=== PATIENT | male | born 1945 | race Caucasian/White ===

== ENCOUNTER 2020-04-21 07:25 | Outpatient (REF) | payer MEDICARE, SELFPAY ==
[2020-04-21 09:34] LABS: Anion Gap 14 (12-20); Blood Urea Nitrogen 32 mg/dL (9-16); Calcium 9.1 mg/dL (8.4-10.2); Carbon Dioxide 33 mmol/L (22-29); Chloride 98 mmol/L (96-108); Estimated Glomerular Filt Rate 40; Glucose Random 260 mg/dL (60-115); Potassium 4.8 mmol/l (3.3-5.1); Sodium 140 mmol/L (135-145)
== END 2020-04-21 07:26 | disposition home or self-care (01) ==
LOC: HO.LAB 07:25
PROVIDERS: PCP Internal Medicine; Visit Provider Nurse Practitioner Family
DX: I48.19 Other persistent atrial fibrillation (principal); I50.9 Heart failure, unspecified
CPT/HCPCS: 36415; 80048

== ENCOUNTER 2020-04-24 06:27 | Day surgery (SDC) | payer MEDICARE, SELFPAY ==
[2020-04-18 17:57] VITALS: BMI 33.7
--- NOTE | 2020-04-23 12:29 | P.CONAN_ITS ---
Documented by User: Xiomy Valerio 04/23/20 12:42 HPI - Anesthesia Eval Consult details Narrative: 75yo M for Cardioversion s/p cardioversion 01/2020 [facility] Past Medical History Medical History Arthritis Atrial fibrillation Back pain Cardiomyopathy CHB (complete heart block) CHF (congestive heart failure) COPD (chronic obstructive pulmonary disease) CVA (cerebral vascular accident) History of cardioversion (02/06/20) Hyperlipidemia Hypertension IDDM (insulin dependent diabetes mellitus) Pacemaker (~03/2019) Sleep apnea with use of continuous positive airway pressure (CPAP) Surgical History Surgical History H/O hernia repair History of lumbar surgery (~1989) Social History Social History Smoking Status: Former smoker Smoked in Last 30 Days: No Smoking Quit Date: 1979 Use of substances other than those prescribed or required for medical reasons: No Advance Directives: No (UNKNNOWN) Advance Directives Information Provided: No (UNKNOWN) Advance Directives on File: No (UNKNOWN) Meds Allergies Allergy/AdvReac Type Severity Reaction Status Date / Time lisinopril [LISINOPRIL] Allergy Unknown UNKNOWN Unverified 04/03/20 18:43 Home Medications Medication Instructions Recorded Confirmed Type albuterol sulfate [ProAir HFA] 2 puff INHALATION Q6H PRN 04/18/20 04/18/20 History amiodarone 1 tab PO DAILY 04/18/20 04/18/20 History apixaban [Eliquis] 1 tab PO BID 04/18/20 04/18/20 History aspirin 81 mg PO DAILY 04/18/20 04/18/20 History atorvastatin 40 mg PO DAILY 04/18/20 04/18/20 History carvedilol 1.5 tab PO BID 04/18/20 04/18/20 History dulaglutide [Trulicity] 1.5 mg SUBCUT QWEEK 04/18/20 04/18/20 History fluticasone propion-salmeterol 1 inh INHALATION BID 04/18/20 04/18/20 History [Wixela Inhub] furosemide 1 tab PO BID 04/18/20 04/18/20 History insulin glargine [Lantus U-100 40 unit SUBCUT DAILY 04/18/20 04/18/20 History Insulin] latanoprost [Xalatan] 1 drp OPHTHALMIC (EYE) QPM 04/18/20 04/18/20 History losartan 1 tab PO DAILY 04/18/20 04/18/20 History metformin 1 tab PO BID 04/18/20 04/18/20 History repaglinide 0.5 mg PO TID 04/18/20 04/18/20 History Exam Exam Date and Time: April 23, 2020 1229 Height,Weight and Vital Signs: Height 5 ft 10 in Weight 106.594 kg Pertinent Lab Results Pertinent Lab Results: Laboratory Tests 03/26/20 04/21/20 07:50 07:58 WBC 11.4 H Hgb 13.7 L Hct 43.6 Plt Count 199 Sodium 140 Potassium 4.8 Chloride 98 Carbon Dioxide 33 H BUN 32 H Creatinine 1.67 H Laboratory Tests 04/16/20 12:35 B-Natriuretic Peptide 498 H EKG 04/16/20: afib with vpaced rhythm, wide QRS Echo: 45-50%, mod global hypokinesis with some regionality at apex Pacer Interrogation 04/16/20: DDDR-70, AP 2%, 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 98%, persistant afib Documented by User: Wendy Pinzon 04/24/20 08:03 [facility] Past Medical History Medical History Arthritis Atrial fibrillation Back pain Cardiomyopathy CHB (complete heart block) CHF (congestive heart failure) COPD (chronic obstructive pulmonary disease) CVA (cerebral vascular accident) History of cardioversion (02/06/20) Hyperlipidemia Hypertension IDDM (insulin dependent diabetes mellitus) Pacemaker (~03/2019) Sleep apnea with use of continuous positive airway pressure (CPAP) Surgical History Surgical History H/O hernia repair History of lumbar surgery (~1989) Social History Social History Smoking Status: Former smoker Smoked in Last 30 Days: No Smoking Quit Date: 1979 Use of substances other than those prescribed or required for medical reasons: No Advance Directives: No (UNKNNOWN) Advance Directives Information Provided: No (UNKNOWN) Advance Directives on File: No (UNKNOWN) Meds Allergies Allergy/AdvReac Type Severity Reaction Status Date / Time lisinopril [LISINOPRIL] Allergy Unknown UNKNOWN Unverified 04/03/20 18:43 Home Medications Medication Instructions Recorded Confirmed Type albuterol sulfate [ProAir HFA] 2 puff INHALATION Q6H PRN 04/18/20 04/18/20 History amiodarone 1 tab PO DAILY 04/18/20 04/18/20 History apixaban [Eliquis] 1 tab PO BID 04/18/20 04/18/20 History aspirin 81 mg PO DAILY 04/18/20 04/18/20 History atorvastatin 40 mg PO DAILY 04/18/20 04/18/20 History carvedilol 1.5 tab PO BID 04/18/20 04/18/20 History dulaglutide [Trulicity] 1.5 mg SUBCUT QWEEK 04/18/20 04/18/20 History fluticasone propion-salmeterol 1 inh INHALATION BID 04/18/20 04/18/20 History [Wixela Inhub] furosemide 1 tab PO BID 04/18/20 04/18/20 History insulin glargine [Lantus U-100 40 unit SUBCUT DAILY 04/18/20 04/18/20 History Insulin] latanoprost [Xalatan] 1 drp OPHTHALMIC (EYE) QPM 04/18/20 04/18/20 History losartan 1 tab PO DAILY 04/18/20 04/18/20 History metformin 1 tab PO BID 04/18/20 04/18/20 History repaglinide 0.5 mg PO TID 04/18/20 04/18/20 History Exam Airway TM Dist: >3cm Neck ROM: Full Heart: irreg Lungs: cta Assessment and Plan Assessment Anesthesia Assessment: Anesthesia Plan Discussed and Chart Reviewed Final Anesthetic Review NPO: Yes ASA Class: IV Final Preanesthetic Review: No Changes in Pt Med Stat, Meds/Allgs Chart Reviewed, Consent Obtained/Reviewed and Anes Risks/Benef Reviewed Patient Risk: Intermediate Procedure Risk: Low Assessment/Block/Sedation in SS: Assess/Block/Sedation-SS Anesthetic Plan Anesthetic Plan: MAC: Disposition: Standard PACU
--- NOTE | 2020-04-24 | ECG_ITS ---
Test Reason : POST CARDIOVERSION Blood Pressure : / mmHG Vent. Rate : 077 BPM Atrial Rate : 077 BPM P-R Int : 174 ms QRS Dur : 188 ms QT Int : 484 ms P-R-T Axes : 043 -80 070 degrees QTc Int : 547 ms Electronic ventricular pacemaker Left axis deviation Abnormal ECG When compared with ECG of 06-FEB-2020 09:10, No significant change was found Referred By: Mckinley Morfin Electronically Signed By:KELSEY FAJARDO MD
[2020-04-24 07:17] VITALS: BP 166/87; PULSE 72; RESP 18; TEMP 36.5; O2SAT 97
[2020-04-24 07:25] LABS: Glucose, Whole Blood 64 mg/dL (60-115)
--- NOTE | 2020-04-24 08:04 | HO.ANESPROP2 ---
FORM[facility]LY [facility], 1928–1983 Past Medical History Medical History Arthritis Atrial fibrillation Back pain Cardiomyopathy CHB (complete heart block) CHF (congestive heart failure) COPD (chronic obstructive pulmonary disease) CVA (cerebral vascular accident) History of cardioversion (02/06/20) Hyperlipidemia Hypertension IDDM (insulin dependent diabetes mellitus) Pacemaker (~03/2019) Sleep apnea with use of continuous positive airway pressure (CPAP) Surgical History Surgical History H/O hernia repair History of lumbar surgery (~1989) Social History Social History Smoking Status: Former smoker Smoked in Last 30 Days: No Smoking Quit Date: 1979 Use of substances other than those prescribed or required for medical reasons: No Advance Directives: No (UNKNNOWN) Advance Directives Information Provided: No (UNKNOWN) Advance Directives on File: No (UNKNOWN) Meds Allergies Allergy/AdvReac Type Severity Reaction Status Date / Time lisinopril [LISINOPRIL] Allergy Unknown UNKNOWN Unverified 04/03/20 18:43 Home Medications Medication Instructions Recorded Confirmed Type albuterol sulfate [ProAir HFA] 2 puff INHALATION Q6H PRN 04/18/20 04/18/20 History amiodarone 1 tab PO DAILY 04/18/20 04/18/20 History apixaban [Eliquis] 1 tab PO BID 04/18/20 04/18/20 History aspirin 81 mg PO DAILY 04/18/20 04/18/20 History atorvastatin 40 mg PO DAILY 04/18/20 04/18/20 History carvedilol 1.5 tab PO BID 04/18/20 04/18/20 History dulaglutide [Trulicity] 1.5 mg SUBCUT QWEEK 04/18/20 04/18/20 History fluticasone propion-salmeterol 1 inh INHALATION BID 04/18/20 04/18/20 History [Wixela Inhub] furosemide 1 tab PO BID 04/18/20 04/18/20 History insulin glargine [Lantus U-100 40 unit SUBCUT DAILY 04/18/20 04/18/20 History Insulin] latanoprost [Xalatan] 1 drp OPHTHALMIC (EYE) QPM 04/18/20 04/18/20 History losartan 1 tab PO DAILY 04/18/20 04/18/20 History metformin 1 tab PO BID 04/18/20 04/18/20 History repaglinide 0.5 mg PO TID 04/18/20 04/18/20 History Exam Exam Date and Time: April 24, 2020 0804 Height,Weight and Vital Signs: Height 5 ft 10 in Weight 106.594 kg Last Vital Signs Temp 97.7 F 04/24/20 07:17 Pulse 72 04/24/20 07:17 Resp 18 04/24/20 07:17 BP 166/87 H 04/24/20 07:17 Pulse Ox 97 04/24/20 07:17 Pertinent Lab Results Pertinent Lab Results: Laboratory Tests 04/24/20 07:16 POC Glucose 64 Airway Mallampati Class: II TM Dist: >3cm Neck ROM: Full Assessment and Plan Assessment Anesthesia Assessment: Anesthesia Plan Discussed and Chart Reviewed Final Anesthetic Review NPO: Yes ASA Class: IV Final Preanesthetic Review: No Changes in Pt Med Stat, Meds/Allgs Chart Reviewed, Consent Obtained/Reviewed and Anes Risks/Benef Reviewed Patient Risk: Intermediate Procedure Risk: Low Assessment/Block/Sedation in SS: Assess/Block/Sedation-SS Anesthetic Plan Anesthetic Plan: MAC: Disposition: Standard PACU
[2020-04-24] MEDS: Apixaban 5 MG TABLET PO (08:19)
[2020-04-24 08:34] VITALS: BP 166/45; PULSE 75; RESP 16; TEMP 36.2; O2SAT 98
--- NOTE | 2020-04-24 08:36 | MHC.SHP ---
Pre-Procedural Eval Section A The patient is an INPATIENT: No Changes since office visit: Yes Cold of Flu in the past 2 weeks The History & Physical has been completed within 30 days and I have reviewed it.: Yes Section B Chief Complaint: Persistent Afib Allergies: Allergies Allergy/AdvReac Type Severity Reaction Status Date / Time lisinopril [LISINOPRIL] Allergy Unknown UNKNOWN Unverified 04/03/20 18:43 Plan Diagnosis/Plan: Unchanged Patient has been examined and remains a candidate for the planned procedure
--- NOTE | 2020-04-24 08:38 | HO.CARDIVERS ---
Cardioversion Procedure Note Cardioversion Date of Procedure: 04/24/2020 Ordering Provider: Performing Provider: Indication for Procedure: Atrial fibrillation Performed with Transesophageal Echo: No History: Atrial fibrillation/CHF Consent: Verbal and Written consent was obtained from the patient before starting. Procedure: After consent obtained, defib pads were attached and the patient was sedated by the anesthesia team. Once adequate sedation achieved, 150 J of synchronized shock was administered. The rhythm converted from atrial fibrillation to sinus. Complications: None Impression: Successful cardioversion from atrial fibrillation to sinus rhythm. Recommendations: Continue Amiodarone/Eliquis.
[2020-04-24 08:39] VITALS: BP 146/53; PULSE 75; RESP 20; O2SAT 97
[2020-04-24 08:44] VITALS: BP 142/64; PULSE 75; RESP 20; O2SAT 96
[2020-04-24 08:49] VITALS: BP 134/43; PULSE 79; RESP 20; O2SAT 98
[2020-04-24 09:04] VITALS: BP 134/43; PULSE 79; RESP 20; O2SAT 99
--- NOTE | 2020-04-24 09:24 | HO.POSTANES ---
Post Anesthesia Evaluation Post Anesthesia Evaluation Vital Signs: Vital Signs Temp Pulse Resp BP Pulse Ox 04/24/20 09:04 79 20 134/43 L 99 04/24/20 08:49 79 20 134/43 L 98 04/24/20 08:44 75 20 142/64 H 96 04/24/20 08:39 75 20 146/53 H 97 04/24/20 08:34 97.2 F 75 16 166/45 H 98 04/24/20 07:17 97.7 F 72 18 166/87 H 97 Anesthesia: Monitored Mental Status: Awake Pain Control: Satisfactory Nausea/Vomiting: None Hydration: Adequate Anesthesia-Related Issues: No Anes. Related Issues
== END 2020-04-24 10:00 | disposition home or self-care (01) ==
PROVIDERS: PCP Internal Medicine; Visit Provider Internal Medicine
PROC: 5A2204Z Restoration of Cardiac Rhythm, Single (ICD-10-PCS; principal; 2020-04-24 08:00)
DX: I48.19 Other persistent atrial fibrillation (principal); Z95.0 Presence of cardiac pacemaker; I11.0 Hypertensive heart disease with heart failure; I50.9 Heart failure, unspecified; E11.9 Type 2 diabetes mellitus without complications; Z79.4 Long term (current) use of insulin; Z79.82 Long term (current) use of aspirin; J44.9 Chronic obstructive pulmonary disease, unspecified; Z79.51 Long term (current) use of inhaled steroids; Z79.01 Long term (current) use of anticoagulants; Z88.8 Allergy status to other drugs, medicaments and biological substances; Z87.891 Personal history of nicotine dependence
CPT/HCPCS: 82947; 92960; 93005

== ENCOUNTER → 2020-05-14 10:36 | Outpatient (BNVA) | payer MEDICARE, SELFPAY | PROVIDERS: PCP Internal Medicine; Referring Provider Internal Medicine; Visit Provider Nurse Practitioner Family | DX: I48.0 Paroxysmal atrial fibrillation (principal); I11.0 Hypertensive heart disease with heart failure; I50.20 Unspecified systolic (congestive) heart failure; N17.9 Acute kidney failure, unspecified; Z79.899 Other long term (current) drug therapy; Z95.0 Presence of cardiac pacemaker | CPT/HCPCS: 93005; 99212 ==

== ENCOUNTER → 2020-05-28 10:43 | Outpatient (BNVA) | payer MEDICARE, SELFPAY | PROVIDERS: PCP Internal Medicine; Visit Provider Internal Medicine | DX: J44.9 Chronic obstructive pulmonary disease, unspecified (principal); G47.33 Obstructive sleep apnea (adult) (pediatric); Z79.899 Other long term (current) drug therapy | CPT/HCPCS: 99212 ==

== ENCOUNTER → 2020-06-25 08:55 | Outpatient (BNVA) | payer MEDICARE, SELFPAY | PROVIDERS: PCP Internal Medicine; Referring Provider Internal Medicine; Visit Provider Nurse Practitioner | DX: I50.9 Heart failure, unspecified (principal); E11.9 Type 2 diabetes mellitus without complications; I48.0 Paroxysmal atrial fibrillation; G47.33 Obstructive sleep apnea (adult) (pediatric); Z12.11 Encounter for screening for malignant neoplasm of colon | CPT/HCPCS: 99202; Q3014 ==

== ENCOUNTER 2020-06-27 09:15 | Outpatient (REF) | payer MEDICARE, SELFPAY ==
[2020-06-27 13:37] LABS: Creatinine Urine 101.46 mg/dL; Microalbum/Creatinine Ratio Ur 22.6 ug/mg cr
== END 2020-06-27 09:16 | disposition home or self-care (01) ==
LOC: HO.LAB 09:15
PROVIDERS: PCP Internal Medicine; Visit Provider Nurse Practitioner Gerontology
DX: E11.42 Type 2 diabetes mellitus with diabetic polyneuropathy (principal); I10 Essential (primary) hypertension; E78.5 Hyperlipidemia, unspecified
CPT/HCPCS: 82043; 82947; 99212

== ENCOUNTER → 2020-07-02 09:09 | Outpatient (REF) | payer MEDICARE, SELFPAY | LOC: HO.SL 09:09 | PROVIDERS: PCP Internal Medicine; Visit Provider Internal Medicine | DX: Z13.89 Encounter for screening for other disorder (principal) ==

== ENCOUNTER 2020-08-14 09:10 | Outpatient (REF) | payer MEDICARE, SELFPAY ==
--- NOTE | 2020-08-14 11:55 | XR_ITS ---
EXAMINATION: XR CHEST CLINICAL INFORMATION: Shortness of breath COMPARISON: 03/26/2020 TECHNIQUE: 2 views of the chest were obtained. FINDINGS: Left chest wall pacer remains in place. The lungs are well expanded. No consolidation or effusion. Central vascular prominence without overt edema. No pneumothorax. The cardiomediastinal silhouette is within normal limits. No acute osseous abnormality. Mild degenerative changes of the spine. XR/XR chest 2V IMPRESSION: Central vascular prominence without overt edema. No consolidation
== END 2020-08-14 09:11 | disposition home or self-care (01) ==
LOC: HO.XRAY 09:10
PROVIDERS: PCP Internal Medicine; Visit Provider Internal Medicine Cardiovascular Disease
DX: I42.9 Cardiomyopathy, unspecified (principal); R06.02 Shortness of breath; E11.42 Type 2 diabetes mellitus with diabetic polyneuropathy; I10 Essential (primary) hypertension; I48.0 Paroxysmal atrial fibrillation; I50.22 Chronic systolic (congestive) heart failure; G47.33 Obstructive sleep apnea (adult) (pediatric); E78.5 Hyperlipidemia, unspecified; Z88.8 Allergy status to other drugs, medicaments and biological substances; Z87.891 Personal history of nicotine dependence; Z99.89 Dependence on other enabling machines and devices; Z95.0 Presence of cardiac pacemaker; Z79.84 Long term (current) use of oral hypoglycemic drugs; Z79.899 Other long term (current) drug therapy
CPT/HCPCS: 71046; 93005; 99212

== ENCOUNTER 2020-08-20 09:24 | Day surgery (SDC) | payer MEDICARE, SELFPAY ==
[2020-08-14 12:04] LABS: MANUAL DIFF FLAG NO
[2020-08-14 12:08] LABS: Basophils Absolute Auto 0.1 X10*3/uL (0.0-0.2); Basophils Percent Auto 0.5 % (0-2); Eosinophils Absolute Auto 0.3 X10*3/uL (0.0-0.4); Eosinophils Percent Auto 2.2 % (0-4); Hematocrit 43.7 % (42-52); Imm Gran Pct Auto 0.8 % (0.0-0.4); Lymphocytes Percent Auto 16.4 % (20-40); Mean Corpuscular Hemoglobin 29.5 pg (27.0-33.0); Monocytes Absolute Auto 0.9 X10*3/uL (0.1-1.2); Monocytes Percent Auto 7.5 % (2-11); Neutrophils Percent Auto 72.6 % (45-73); Platelet Count 194 X10*3/uL (160-400); Red Blood Count 4.75 X10*6/uL (4.60-5.80); Red Cell Distribution Width 13.2 % (11.0-16.0); White Blood Count 12.4 X10*3/uL (4.8-10.8)
[2020-08-14 12:48] LABS: Alanine Aminotransferase 21 U/L (0-40); Albumin Level 4.1 g/dL (3.5-5.0); Alkaline Phosphatase 113 U/L (39-117); Anion Gap 14 (12-20); Aspartate Amino Transferase 21 U/L (5-37); Bilirubin Direct 0.4 mg/dL (0.0-0.5); Blood Urea Nitrogen 26 mg/dL (9-16); Calcium 9.2 mg/dL (8.4-10.2); Carbon Dioxide 31 mmol/L (22-29); Chloride 103 mmol/L (96-108); Cholesterol 104 mg/dL; Estimated Glomerular Filt Rate 44; Glucose Fasting 163 mg/dL (60-99); HDL Cholesterol 39 mg/dL; LDL Cholesterol Calculated 55 mg/dl; Sodium 143 mmol/L (135-145); Total Protein 6.8 g/dL (6.5-8.0); Triglycerides 50 mg/dL
[2020-08-14 12:56] LABS: Microalbum/Creatinine Ratio Ur 127.3 ug/mg cr
[2020-08-14 12:59] LABS: B Type Natriuretic Peptide 300 pg/mL (<100)
[2020-08-19 12:30] VITALS: BMI 33.3
[2020-08-20] VITALS (8 sets, daily range): BP systolic 98–134; BP diastolic 53–77; PULSE 72–84; RESP 16–20; TEMP 36.6–37.1; O2SAT 94–100; BMI 33.5
--- NOTE | 2020-08-20 08:45 | MHC.SHP ---
Pre-Procedural Eval Section A The patient is an INPATIENT: No Changes since office visit: Yes Patient answered all questions; No Cold of Flu in the past 2 weeks, No New Medical Problems and No Changes in Medication The History & Physical has been completed within 30 days and I have reviewed it.: Yes Section B Chief Complaint: afib Allergies: Allergies Allergy/AdvReac Type Severity Reaction Status Date / Time lisinopril [LISINOPRIL] Allergy Unknown UNKNOWN Verified 07/28/20 09:05 Plan I have reviewed the history and physical and performed a pertinent physical examination on my patient. No changes have occurred unless specified.
[2020-08-20 09:50] LABS: Glucose, Whole Blood 98 mg/dL (60-115)
--- NOTE | 2020-08-20 10:34 | HO.ANESPROP2 ---
[facility] Past Medical History Medical History Arthritis Atrial fibrillation Back pain Cardiomyopathy CHB (complete heart block) CHF (congestive heart failure) COPD (chronic obstructive pulmonary disease) CVA (cerebral vascular accident) Diabetes mellitus Essential hypertension History of cardioversion (02/06/20) Hyperlipidemia LDL goal <70 Hypertension IDDM (insulin dependent diabetes mellitus) ETHEL treated with BiPAP Pacemaker (~03/2019) PAF (paroxysmal atrial fibrillation) Positive fecal occult blood test Sleep apnea with use of continuous positive airway pressure (CPAP) Family History Family History Father Diabetes Hypertension Stroke Mother Diabetes Hypertension Surgical History Surgical History H/O hernia repair History of cataract surgery History of lumbar surgery (~1989) History of pacemaker History of pterygium Hx of colonoscopy Social History Social History Household Members: None Alcohol intake: former Year quit: 30+ Smoking Status: Former smoker Use of substances other than those prescribed or required for medical reasons: No Advance Directives: No Advance Directives Information Provided: Yes Meds Allergies Allergy/AdvReac Type Severity Reaction Status Date / Time lisinopril [LISINOPRIL] Allergy Unknown UNKNOWN Verified 07/28/20 09:05 Home Medications Medication Instructions Recorded Confirmed Type albuterol sulfate [ProAir HFA] 2 puff INHALATION Q6H PRN 04/18/20 08/14/20 History amiodarone 1 tab PO DAILY 04/18/20 08/14/20 History atorvastatin 40 mg PO DAILY 04/18/20 08/14/20 History carvedilol 1.5 tab PO BID 04/18/20 08/14/20 History dulaglutide [Trulicity] 1.5 mg SUBCUT QWEEK 04/18/20 08/14/20 History fluticasone propion-salmeterol 1 inh INHALATION BID 04/18/20 08/14/20 History [Wixela Inhub] latanoprost [Xalatan] 1 drp OPHTHALMIC (EYE) QPM 04/18/20 08/14/20 History losartan 1 tab PO DAILY 04/18/20 08/14/20 History repaglinide 0.5 mg PO TID 04/18/20 08/14/20 History blood sugar diagnostic #10 ea 05/06/20 08/14/20 History lancets 33 gauge #100 ea 05/06/20 08/14/20 History blood sugar diagnostic #10 ea 06/27/20 08/14/20 History cholecalciferol (vitamin D3) 25 25 mcg PO DAILY 06/27/20 08/14/20 History mcg (1,000 unit) capsule ipratropium 0.5 mg-albuterol 3 mg 3 ml INHALATION TID PRN 06/27/20 08/14/20 History (2.5 mg base)/3 mL nebulization soln lancets #100 ea 06/27/20 08/14/20 History pen needle, diabetic 32 gauge x #50 ea 06/27/20 08/14/20 History repaglinide 0.5 mg tablet See Rx Instructions PO TID 06/27/20 08/14/20 History furosemide 40 mg tablet 40 mg PO BID tab 08/14/20 08/14/20 History Exam Exam Date and Time: August 20, 2020 1034 Height,Weight and Vital Signs: Height 5 ft 10 in Weight 106.141 kg Last Vital Signs Temp 98.4 F 08/20/20 09:40 Pulse 72 08/20/20 09:40 Resp 20 08/20/20 09:40 BP 134/58 L 08/20/20 09:40 Pulse Ox 94 08/20/20 09:40 Pertinent Lab Results Pertinent Lab Results: Laboratory Tests 08/14/20 08/14/20 08/14/20 11:26 11:26 11:26 WBC 12.4 H RBC 4.75 Hgb 14.0 Hct 43.7 MCV 92.0 MCH 29.5 MCHC 32.0 RDW 13.2 Plt Count 194 MPV 10.0 Immature Gran % (Auto) 0.8 H Neut % (Auto) 72.6 Lymph % (Auto) 16.4 L [place] % (Auto) 7.5 Eos % (Auto) 2.2 Baso % (Auto) 0.5 Lymph # (Auto) 2.0 [place] # (Auto) 0.9 Eos # (Auto) 0.3 Baso # (Auto) 0.1 Abs Immat Gran (auto) 0.10 H Absolute Neuts (auto) 9.0 H Absolute Nucleated RBC 0.000 Nucleated RBC % (auto) 0.0 Sodium 143 Potassium 5.0 Chloride 103 Carbon Dioxide 31 H Anion Gap 14 BUN 26 H Creatinine 1.55 H Estim Creat Clear Calc TNP Estimated GFR 44 POC Glucose Fasting Glucose 163 H Calcium 9.2 Total Bilirubin 1.0 Direct Bilirubin 0.4 AST 21 ALT 21 Alkaline Phosphatase 113 B-Natriuretic Peptide Total Protein 6.8 Albumin 4.1 Triglycerides 50 Cholesterol 104 LDL Cholesterol, Calc 55 HDL Cholesterol 39 TSH Urine Creatinine 142.90 Urine Microalbumin 182.0 Microalb/Creat Ratio 127.3 08/14/20 08/14/20 08/20/20 11:26 11:26 09:47 WBC RBC Hgb Hct MCV MCH MCHC RDW Plt Count MPV Immature Gran % (Auto) Neut % (Auto) Lymph % (Auto) [place] % (Auto) Eos % (Auto) Baso % (Auto) Lymph # (Auto) [place] # (Auto) Eos # (Auto) Baso # (Auto) Abs Immat Gran (auto) Absolute Neuts (auto) Absolute Nucleated RBC Nucleated RBC % (auto) Sodium Potassium Chloride Carbon Dioxide Anion Gap BUN Creatinine Estim Creat Clear Calc Estimated GFR POC Glucose 98 Fasting Glucose Calcium Total Bilirubin Direct Bilirubin AST ALT Alkaline Phosphatase B-Natriuretic Peptide 300 H Total Protein Albumin Triglycerides Cholesterol LDL Cholesterol, Calc HDL Cholesterol TSH 1.20 Urine Creatinine Urine Microalbumin Microalb/Creat Ratio Airway TM Dist: >3cm Neck ROM: Full Denture: Upper Heart: irreg Lungs: decrease BS BL Assessment and Plan Assessment Anesthesia Assessment: Anesthesia Plan Discussed and Chart Reviewed Final Anesthetic Review NPO: Yes (Sip water with meds) ASA Class: III Final Preanesthetic Review: Meds/Allgs Chart Reviewed and Consent Obtained/Reviewed Patient Risk: Intermediate Procedure Risk: Intermediate Anesthetic Plan Anesthetic Plan: MAC: Disposition: Standard PACU
[2020-08-20] MEDS: Lactated Ringers 1,000 ML 100 ML IVCONT (10:45)
--- NOTE | 2020-08-20 11:20 | HO.CARDIVERS ---
Cardioversion Procedure Note Cardioversion Date of Procedure: 08/20/2020 Ordering Provider: Myself Performing Provider: Myself Indication for Procedure: Recent onset persistent symptomatic atrial fibrillation with heart failure Pre-Op Diagnosis: Persistent atrial fibrillation Post-Op Diagnosis: Sinus rhythm Performed with Transesophageal Echo: No History: See history and physical for details Consent: Verbal and Written consent was obtained from the patient before starting an oral anticoagulation confirmed. The patient was made aware of the risk benefits, 2nd opinion alternatives to the procedure. Procedure: After consent obtained, cardioversion pads were attached in AP configuration and the patient was sedated by the anesthesia team. Once adequate sedation achieved, 200 joules of biphasic synchronized energy was delivered in AP configuration Complications: Nonsignificant Impression: Successful conversion to sinus rhythm Recommendations: 1. Continue with oral anticoagulation 2. Continue with amiodarone 3. EKG 4. Office visit in 2 weeks will be scheduled. 5. IV Lasix
--- NOTE | 2020-08-20 11:23 | ECG_ITS ---
Test Reason : S/P CARDIOVERSION Blood Pressure : / mmHG Vent. Rate : 082 BPM Atrial Rate : 082 BPM P-R Int : 182 ms QRS Dur : 192 ms QT Int : 476 ms P-R-T Axes : 058 -76 071 degrees QTc Int : 556 ms Atrial-sensed ventricular-paced rhythm with occasional Premature ventricular complexes Abnormal ECG When compared with ECG of 24-APR-2020 08:50, Premature ventricular complexes are now Present Vent. rate has increased BY 5 BPM Referred By: Bari Dorado Electronically Signed By:BARI DORADO MD
--- NOTE | 2020-08-20 11:23 | PM.EVENT ---
Event Note Date of Service: 08/20/20 Event Note: Dual-chamber Medtronic pacemaker was reprogrammed from VVIR to DDDR at 70 beats per minute. Atrial pacing thresholds excellent and reprogrammed to enhance battery life. Ventricular pacing thresholds were adequate and reprogrammed for adequate safety. Pacing lead impedance is stable.
[2020-08-20] MEDS: Furosemide 40 MG/4 ML VIAL IVPUSH (12:07)
--- NOTE | 2020-08-20 12:13 | HO.POSTANES ---
Post Anesthesia Evaluation Post Anesthesia Evaluation Vital Signs: Vital Signs Temp Pulse Resp BP Pulse Ox 08/20/20 11:27 83 18 114/66 100 08/20/20 11:22 82 16 107/62 100 08/20/20 11:17 98.8 F 79 16 98/53 L 100 08/20/20 09:40 98.4 F 72 20 134/58 L 94 Anesthesia: General Mental Status: Awake Pain Control: Satisfactory Nausea/Vomiting: None Hydration: Adequate Anesthesia-Related Issues: No Anes. Related Issues
== END 2020-08-20 12:55 | disposition home or self-care (01) ==
PROVIDERS: PCP Internal Medicine; Visit Provider Internal Medicine Cardiovascular Disease
PROC: 5A2204Z Restoration of Cardiac Rhythm, Single (ICD-10-PCS; principal; 2020-08-20 11:00)
DX: I48.19 Other persistent atrial fibrillation (principal); Z79.01 Long term (current) use of anticoagulants; I50.9 Heart failure, unspecified; I11.0 Hypertensive heart disease with heart failure; I42.9 Cardiomyopathy, unspecified; E11.9 Type 2 diabetes mellitus without complications; E78.5 Hyperlipidemia, unspecified; J44.9 Chronic obstructive pulmonary disease, unspecified; Z79.4 Long term (current) use of insulin; Z79.899 Other long term (current) drug therapy; Z95.0 Presence of cardiac pacemaker; Z88.8 Allergy status to other drugs, medicaments and biological substances; Z87.891 Personal history of nicotine dependence
CPT/HCPCS: 36415; 80053; 80061; 80076; 82043; 82248; 82947; 83880; 84443; 85025; 92960; 93005; J0171; J0330; J0461; J1940

== ENCOUNTER → 2020-08-25 09:55 | Outpatient (BNVA) | payer MEDICARE, SELFPAY | PROVIDERS: PCP Internal Medicine; Referring Provider Internal Medicine; Visit Provider Nurse Practitioner | CPT/HCPCS: Q3014 ==

== ENCOUNTER → 2020-08-28 09:33 | Outpatient (BNVA) | payer MEDICARE, SELFPAY | PROVIDERS: PCP Internal Medicine; Visit Provider Internal Medicine | DX: J44.9 Chronic obstructive pulmonary disease, unspecified (principal); G47.33 Obstructive sleep apnea (adult) (pediatric) | CPT/HCPCS: 99212 ==

== ENCOUNTER 2020-09-11 14:24 | Outpatient (REF) | payer MEDICARE, SELFPAY ==
[2020-09-11 16:33] LABS: MANUAL DIFF FLAG NO
[2020-09-11 16:40] LABS: Basophils Absolute Auto 0.1 X10*3/uL (0.0-0.2); Basophils Percent Auto 0.5 % (0-2); Eosinophils Absolute Auto 0.2 X10*3/uL (0.0-0.4); Eosinophils Percent Auto 1.6 % (0-4); Hemoglobin 13.1 g/dl (14.0-18.0); Imm Gran Abs Auto 0.09 X10*3/uL (0.00-0.03); Imm Gran Pct Auto 0.8 % (0.0-0.4); Lymphocytes Absolute Auto 1.9 X10*3/uL (1.2-4.9); Mean Corpuscular HGB Conc 31.2 g/dl (31.0-36.0); Mean Corpuscular Hemoglobin 28.9 pg (27.0-33.0); Mean Corpuscular Volume 92.7 fL (80-98); Mean Platelet Volume 9.7 fL (9.4-12.4); Monocytes Percent Auto 8.4 % (2-11); Neutrophils Absolute Auto 8.6 X10*3/uL (2.0-8.3); Neutrophils Percent Auto 72.7 % (45-73); Platelet Count 200 X10*3/uL (160-400); Red Blood Count 4.53 X10*6/uL (4.60-5.80); White Blood Count 11.8 X10*3/uL (4.8-10.8)
[2020-09-11 17:10] LABS: Alanine Aminotransferase 18 U/L (0-40); Anion Gap 10 (12-20); Aspartate Amino Transferase 15 U/L (5-37); Blood Urea Nitrogen 27 mg/dL (9-16); Calcium 9.3 mg/dL (8.4-10.2); Carbon Dioxide 33 mmol/L (22-29); Chloride 105 mmol/L (96-108); Cholesterol 106 mg/dL; Estimated Glomerular Filt Rate 49; Glucose Random 178 mg/dL (60-115); HDL Cholesterol 35 mg/dL; LDL Cholesterol Calculated 62 mg/dl; Potassium 5.2 mmol/L (3.3-5.1); Sodium 143 mmol/L (135-145); Triglycerides 46 mg/dL
[2020-09-11 17:11] LABS: B Type Natriuretic Peptide 407 pg/mL (<100)
[2020-09-11 17:26] LABS: TSH reflex Free T4 1.03 uIU/mL (0.32-4.0)
== END 2020-09-11 14:25 | disposition home or self-care (01) ==
LOC: HO.LAB 14:24
PROVIDERS: Nurse Practitioner Family; Absent Provider Internal Medicine; PCP Internal Medicine; Visit Provider Internal Medicine Cardiovascular Disease
DX: I48.0 Paroxysmal atrial fibrillation (principal); I50.22 Chronic systolic (congestive) heart failure; R19.5 Other fecal abnormalities; E11.9 Type 2 diabetes mellitus without complications; N17.9 Acute kidney failure, unspecified; R53.83 Other fatigue; R06.02 Shortness of breath; Z79.899 Other long term (current) drug therapy
CPT/HCPCS: 36415; 80048; 80061; 83880; 84443; 84450; 84460; 85025; 93005; 99212

== ENCOUNTER 2020-09-17 09:32 | Outpatient (REF) | payer MEDICARE, MEDICAID, SELFPAY ==
[2020-09-17 11:31] LABS: Hematocrit 43.3 % (42-52); Hemoglobin 13.7 g/dl (14.0-18.0); Mean Corpuscular HGB Conc 31.6 g/dl (31.0-36.0); Mean Corpuscular Hemoglobin 29.4 pg (27.0-33.0); Mean Corpuscular Volume 92.9 fL (80-98); Mean Platelet Volume 9.9 fL (9.4-12.4); Platelet Count 167 X10*3/uL (160-400); Red Blood Count 4.66 X10*6/uL (4.60-5.80); White Blood Count 13.8 X10*3/uL (4.8-10.8)
[2020-09-17 12:07] LABS: Anion Gap 11 (12-20); B Type Natriuretic Peptide 265 pg/mL (<100); Blood Urea Nitrogen 32 mg/dL (9-16); Calcium 9.3 mg/dL (8.4-10.2); Carbon Dioxide 31 mmol/L (22-29); Chloride 103 mmol/L (96-108); Estimated Glomerular Filt Rate 41; Glucose Random 140 mg/dL (60-115); Sodium 140 mmol/L (135-145)
== END 2020-09-17 09:33 | disposition home or self-care (01) ==
LOC: HO.LAB 09:32
PROVIDERS: PCP Internal Medicine; Visit Provider Internal Medicine Cardiovascular Disease
DX: I50.22 Chronic systolic (congestive) heart failure (principal); I48.0 Paroxysmal atrial fibrillation; Z79.01 Long term (current) use of anticoagulants
CPT/HCPCS: 36415; 80048; 83880; 85027; 99212

== ENCOUNTER → 2020-09-21 20:18 | Outpatient (REF) | payer MEDICARE, MEDICAID, SELFPAY | LOC: HO.SL 20:18 | PROVIDERS: PCP Internal Medicine; Visit Provider Internal Medicine | DX: I42.9 Cardiomyopathy, unspecified (principal); I48.0 Paroxysmal atrial fibrillation; I50.22 Chronic systolic (congestive) heart failure | CPT/HCPCS: 95811 ==

== ENCOUNTER 2020-09-24 03:26 | Emergency (ER) | payer MEDICARE, MEDICAID, SELFPAY | END 2020-09-24 06:00 | disposition home or self-care (01) | LOC: HO.ED 07:59 | PROVIDERS: Emergency Provider Internal Medicine; PCP Internal Medicine | DX: S39.92XA Unspecified injury of lower back, initial encounter (principal); X58.XXXA Exposure to other specified factors, initial encounter; Y93.9 Activity, unspecified; Y92.9 Unspecified place or not applicable; Y99.9 Unspecified external cause status ==

== ENCOUNTER → 2020-09-30 12:09 | Outpatient (BNVA) | payer MEDICARE, MEDICAID, SELFPAY | PROVIDERS: PCP Internal Medicine; Visit Provider Internal Medicine Cardiovascular Disease | DX: I48.0 Paroxysmal atrial fibrillation (principal); I50.22 Chronic systolic (congestive) heart failure | CPT/HCPCS: 99212 ==

== ENCOUNTER → 2020-10-03 10:49 | Outpatient (BNVA) | payer MEDICARE, MEDICAID, SELFPAY | PROVIDERS: PCP Internal Medicine; Visit Provider Nurse Practitioner Gerontology | DX: E11.42 Type 2 diabetes mellitus with diabetic polyneuropathy (principal); E66.09 Other obesity due to excess calories; Z68.33 Body mass index [BMI] 33.0-33.9, adult; I10 Essential (primary) hypertension; E78.5 Hyperlipidemia, unspecified | CPT/HCPCS: 82947; 99212 ==

== ENCOUNTER 2020-10-07 07:27 | Outpatient (REF) | payer MEDICARE, MEDICAID, SELFPAY ==
[2020-10-07 08:03] LABS: Hematocrit 41.6 % (42-52); Hemoglobin 13.3 g/dl (14.0-18.0); Mean Corpuscular Hemoglobin 29.2 pg (27.0-33.0); Mean Corpuscular Volume 91.4 fL (80-98); Mean Platelet Volume 9.9 fL (9.4-12.4); Platelet Count 205 X10*3/uL (160-400); Red Blood Count 4.55 X10*6/uL (4.60-5.80); Red Cell Distribution Width 12.8 % (11.0-16.0); White Blood Count 12.3 X10*3/uL (4.8-10.8)
[2020-10-07 08:33] LABS: B Type Natriuretic Peptide 101 pg/mL (<100)
[2020-10-07 08:34] LABS: Anion Gap 16 (12-20); Blood Urea Nitrogen 37 mg/dL (9-16); Calcium 9.2 mg/dL (8.4-10.2); Carbon Dioxide 30 mmol/L (22-29); Chloride 100 mmol/L (96-108); Estimated Glomerular Filt Rate 37; Glucose Random 189 mg/dL (60-115); Potassium 5.1 mmol/L (3.3-5.1); Sodium 141 mmol/L (135-145)
[2020-10-07 08:44] LABS: Creatinine Urine 75.51 mg/dL; Microalbum/Creatinine Ratio Ur 9.2 ug/mg cr
== END 2020-10-07 07:28 | disposition home or self-care (01) ==
LOC: HO.LAB 07:27
PROVIDERS: Nurse Practitioner Gerontology; PCP Internal Medicine; Visit Provider Internal Medicine Cardiovascular Disease
DX: E11.42 Type 2 diabetes mellitus with diabetic polyneuropathy (principal); I50.22 Chronic systolic (congestive) heart failure; I48.0 Paroxysmal atrial fibrillation
CPT/HCPCS: 36415; 80048; 82043; 83880; 85027

== ENCOUNTER 2020-10-28 07:28 | Outpatient (REF) | payer MEDICARE, MEDICAID, SELFPAY ==
[2020-10-28 09:09] LABS: B Type Natriuretic Peptide 155 pg/mL (<100)
[2020-10-28 09:11] LABS: Anion Gap 15 (12-20); Blood Urea Nitrogen 53 mg/dL (9-16); Calcium 9.2 mg/dL (8.4-10.2); Carbon Dioxide 33 mmol/L (22-29); Chloride 96 mmol/L (96-108); Estimated Glomerular Filt Rate 35; Glucose Random 289 mg/dL (60-115); Potassium 4.4 mmol/L (3.3-5.1); Sodium 140 mmol/L (135-145)
== END 2020-10-28 07:29 | disposition home or self-care (01) ==
LOC: HO.LAB 07:28
PROVIDERS: PCP Internal Medicine; Visit Provider Internal Medicine Cardiovascular Disease
DX: I50.22 Chronic systolic (congestive) heart failure (principal)
CPT/HCPCS: 36415; 80048; 83880

== ENCOUNTER → 2020-10-30 10:06 | Outpatient (BNVA) | payer MEDICARE, SELFPAY | PROVIDERS: PCP Internal Medicine; Visit Provider Internal Medicine | DX: J44.9 Chronic obstructive pulmonary disease, unspecified (principal); G47.33 Obstructive sleep apnea (adult) (pediatric); E66.09 Other obesity due to excess calories; Z68.33 Body mass index [BMI] 33.0-33.9, adult; Z99.89 Dependence on other enabling machines and devices; Z87.891 Personal history of nicotine dependence; Z79.899 Other long term (current) drug therapy; Z71.3 Dietary counseling and surveillance | CPT/HCPCS: 99212 ==

== ENCOUNTER → 2020-11-06 11:02 | Outpatient (BNVA) | payer MEDICARE, SELFPAY | PROVIDERS: PCP Internal Medicine; Visit Provider Nurse Practitioner | DX: K59.00 Constipation, unspecified (principal) | CPT/HCPCS: Q3014 ==

== ENCOUNTER 2020-11-27 13:57 | Outpatient (REF) | payer MEDICARE, SELFPAY ==
[2020-11-27 16:52] LABS: B Type Natriuretic Peptide 150 pg/mL (<100)
[2020-11-27 16:54] LABS: Anion Gap 14 (12-20); Blood Urea Nitrogen 29 mg/dL (9-16); Calcium 8.8 mg/dL (8.4-10.2); Carbon Dioxide 29 mmol/L (22-29); Chloride 97 mmol/L (96-108); Estimated Glomerular Filt Rate 40; Glucose Random 224 mg/dL (60-115); Potassium 4.4 mmol/L (3.3-5.1); Sodium 136 mmol/L (135-145)
== END 2020-11-27 13:58 | disposition home or self-care (01) ==
LOC: HO.LAB 13:57
PROVIDERS: PCP Internal Medicine; Visit Provider Internal Medicine Cardiovascular Disease
DX: I50.22 Chronic systolic (congestive) heart failure (principal); I48.0 Paroxysmal atrial fibrillation; Z79.01 Long term (current) use of anticoagulants; Z45.018 Encounter for adjustment and management of other part of cardiac pacemaker
CPT/HCPCS: 36415; 80048; 83880; 93005; 99212

== ENCOUNTER → 2020-12-01 11:44 | Outpatient (BNVA) | payer MEDICARE, SELFPAY | PROVIDERS: PCP Internal Medicine; Visit Provider Internal Medicine | DX: G47.33 Obstructive sleep apnea (adult) (pediatric) (principal); J44.9 Chronic obstructive pulmonary disease, unspecified; Z99.89 Dependence on other enabling machines and devices | CPT/HCPCS: 99212 ==

== ENCOUNTER → 2021-02-02 10:04 | Outpatient (REF) | payer MEDICARE, SELFPAY ==
--- NOTE | 2021-02-02 10:08 | CA_ITS ---
Transthoracic Echocardiogram Patient (Last, First, Middle): Dg Ortiz, Gender: Male Date of : 1945 Age: 75 Procedure Date: 02/02/2021 Procedure Type: Transthoracic Echocardiogram Location: OP Height: 177.8 cm Weight: 107.96 kg BSA: 2.25 m2 Heart Rate: bpm BP: 150 / 60 mmHg Rhinologist: YR/LEONOR Referring MD: Bari Dorado MD Outsole Rounder: Bari Dorado MD Symptoms: I50.22 - Chronic systolic (congestive) heart failure Study Quality: Technically Difficult/Conrrast ECG Rhythm: Ventriculary paced rhythm Conclusions: - 1. Low normal LV systolic function with restrictive filling pattern 2. Mild biatrial enlargement 3. Normal cardiac valvular Doppler 4. Normal RV systolic pressure 5. No pericardial effusion Findings Procedure Information Contrast agent, definity, is being given per protocol without apparent complications. Left Ventricle Normal left ventricular cavity size. There is normal left ventricular wall thickness. The left ventricular systolic function is low normal. The visually estimated ejection fraction is between 50-55%. There is paradoxical septal motion consistent with a right ventricular pacemaker. Spectral Doppler is indicative of a restrictive filling pattern. Wall Motion Rest Echo Findings The apex segment is hypokinetic. Right Ventricle Normal right ventricular cavity size. There is low normal right ventricular systolic function. There is a pacemaker wire seen in the right ventricle. Atria The left atrium is mildly dilated. There is no evidence of interatrial shunt. The right atrium is mildly dilated. A pacemaker wire is identified in the right atrium. Aortic Valve The aortic valve was not well visualized. There is no aortic valve stenosis. There is no aortic valve regurgitation. Mitral Valve Likely normal mitral valve structure and function. There is trace mitral valve regurgitation. There is no mitral valve stenosis. Pulmonic Valve The pulmonic valve was not well visualized. Tricuspid Valve The tricuspid valve was not well visualized. There is mild tricuspid valve regurgitation. The right ventricular systolic pressure is normal. The right ventricular systolic pressure is 21 mmHg. Normal right atrial pressure. There is no evidence of pulmonary hypertension. Great Vessels All visible segments of the aorta are normal in size. The pulmonary artery was not well visualized. Venous The inferior vena cava was not well visualized. The inferior vena cava is normal in size. Pericardium/Pleural There is no evidence of pericardial effusion. Prior Study Comparison No significant change compared to prior study dated: 01/09/2020. Measurements 2D Linear Measurements IVSd: 1.15 0.6-0.9/0.6-1.0 cm LVIDd: 4.56 3.9-5.3/4.2-5.9 cm LVIDd Index: 2.03 2.4-3.2/2.2-3.1 cm/m2 LVIDs: 3.26 2.0-3.6 cm LVPWd: 1.06 0.7-1.1 cm Ao Root: 3.50 2.1-3.5 cm LA Diam: 4.60 2.7-3.8/3.0-4.0 cm LAIDs Index: 2.04 1.5-2.3 cm/m2 LV Mass: 224.09 67-162/88-224 g LV Mass Index: 99.59 43-95/49-115 g/m2 LVOT Diam: 2.50 3.0+(-)1.3 cm 2D Systolic Function EF 4C: 69.00 >55% EF 2C: 53.40 >55% Mitral Valve E'Lateral: 7.40 E'Medial: 6.42 Aortic Valve AoV Pk Jaydon: 1.56 AoV Mn Jaydon: 1.13 AoV VTI: 0.31 AoV Pk Grad: 10.00 Aov Mn Grad: 6.00 YISEL Cont.VTI: 2.39 LVOT LVOT Pk Jaydon: 0.74 LVOT Mn [place]don: 0.47 LVOT VTI: 0.15 LVOT Pk Grad: 2.00 LVOT Mn Grad: 1.00 LVOT Diam: 2.50 LVOT Area: 4.91 Diastolic Function E'Medial: 6.42 E' Laterial: 7.40 Tricuspid Valve TR Pk Jaydon: 2.13 TR Pk Grad: 18.00 RA Press: 3.00 RVSP: 21.00 Great Vessels Aorta Ao Root-2D: 3.50 2.0-3.7 cm Ao Asc: 3.40 2.1-3.4 cm Ao Arch: 3.50 Updated in Other Vendor System with Status of Final Bari Dorado MD electronically signed on 02/04/2021 10:50:55 AM with status of Final
== END ==
LOC: HO.CARD 10:04
PROVIDERS: Visit Provider Internal Medicine Cardiovascular Disease
DX: I50.22 Chronic systolic (congestive) heart failure (principal)
CPT/HCPCS: 93306; Q9957

== ENCOUNTER → 2021-02-09 09:25 | Outpatient (BNVA) | payer MEDICARE, SELFPAY | PROVIDERS: PCP Internal Medicine; Visit Provider Internal Medicine | DX: J44.9 Chronic obstructive pulmonary disease, unspecified (principal); G47.33 Obstructive sleep apnea (adult) (pediatric); E66.09 Other obesity due to excess calories; Z68.33 Body mass index [BMI] 33.0-33.9, adult; Z99.89 Dependence on other enabling machines and devices; Z79.899 Other long term (current) drug therapy; Z71.3 Dietary counseling and surveillance | CPT/HCPCS: 99212 ==

== ENCOUNTER 2021-03-11 09:40 | Outpatient (REF) | payer MEDICARE, SELFPAY ==
[2021-03-12 22:25] LABS: IgA 294 mg/dL (70-320); IgG 1265 mg/dL (600-1540); IgM 106 mg/dL (50-300)
[2021-03-17 14:46] LABS: Kappa, Serum 354 mg/dL (176-443); Kappa/Lambda Ratio, Serum 2.34 (1.29-2.55); Lambda, Serum 151 mg/dL (91-240)
== END 2021-03-11 09:41 | disposition home or self-care (01) ==
LOC: HO.LAB 09:40
PROVIDERS: PCP Internal Medicine; Referring Provider Internal Medicine; Visit Provider Internal Medicine Cardiovascular Disease
DX: I50.22 Chronic systolic (congestive) heart failure (principal); I48.0 Paroxysmal atrial fibrillation
CPT/HCPCS: 82784; 83883; 86334; 86335; 99212

== ENCOUNTER → 2021-04-10 08:57 | Outpatient (BNVA) | payer MEDICARE, SELFPAY | PROVIDERS: PCP Internal Medicine; Visit Provider Nurse Practitioner Gerontology | DX: E11.42 Type 2 diabetes mellitus with diabetic polyneuropathy (principal); E78.5 Hyperlipidemia, unspecified; E66.09 Other obesity due to excess calories; I10 Essential (primary) hypertension; Z68.33 Body mass index [BMI] 33.0-33.9, adult | CPT/HCPCS: 82947; 83036; 99212 ==

== ENCOUNTER → 2021-04-29 13:15 | Outpatient (BNVA) | payer MEDICARE, SELFPAY | PROVIDERS: PCP Internal Medicine; Visit Provider Nurse Practitioner Gerontology | DX: E11.42 Type 2 diabetes mellitus with diabetic polyneuropathy (principal); E66.09 Other obesity due to excess calories; E78.5 Hyperlipidemia, unspecified; I10 Essential (primary) hypertension; Z68.33 Body mass index [BMI] 33.0-33.9, adult | CPT/HCPCS: 82947; 99212 ==

== ENCOUNTER 2021-05-01 07:19 | Outpatient (REF) | payer MEDICARE, SELFPAY ==
[2021-05-01 08:08] LABS: MANUAL DIFF FLAG NO
[2021-05-01 08:58] LABS: Basophils Percent Auto 0.4 % (0-2); Eosinophils Absolute Auto 0.3 X10*3/uL (0.0-0.4); Eosinophils Percent Auto 2.9 % (0-4); Hematocrit 37.8 % (42-52); Hemoglobin 11.9 g/dl (14.0-18.0); Imm Gran Abs Auto 0.06 X10*3/uL (0.00-0.03); Imm Gran Pct Auto 0.6 % (0.0-0.4); Lymphocytes Absolute Auto 1.5 X10*3/uL (1.2-4.9); Lymphocytes Percent Auto 14.7 % (20-40); Mean Corpuscular HGB Conc 31.5 g/dl (31.0-36.0); Mean Corpuscular Hemoglobin 28.1 pg (27.0-33.0); Mean Corpuscular Volume 89.4 fL (80-98); Mean Platelet Volume 10.6 fL (9.4-12.4); Monocytes Absolute Auto 0.8 X10*3/uL (0.1-1.2); Monocytes Percent Auto 7.7 % (2-11); Neutrophils Absolute Auto 7.5 X10*3/uL (2.0-8.3); Neutrophils Percent Auto 73.7 % (45-73); Platelet Count 179 X10*3/uL (160-400); Red Blood Count 4.23 X10*6/uL (4.60-5.80); Red Cell Distribution Width 13.3 % (11.0-16.0); White Blood Count 10.1 X10*3/uL (4.8-10.8)
[2021-05-01 09:30] LABS: B Type Natriuretic Peptide 286 pg/mL (<100)
[2021-05-01 09:32] LABS: Alanine Aminotransferase 13 U/L (0-40); Albumin Level 3.5 g/dL (3.5-5.0); Alkaline Phosphatase 111 U/L (39-117); Anion Gap 12 (12-20); Aspartate Amino Transferase 14 U/L (5-37); Bilirubin Total 0.9 mg/dL (0.0-1.0); Blood Urea Nitrogen 31 mg/dL (9-16); Calcium 9.4 mg/dL (8.4-10.2); Carbon Dioxide 31 mmol/L (22-29); Chloride 105 mmol/L (96-108); Cholesterol 97 mg/dL; Estimated Glomerular Filt Rate 46; Glucose Fasting 97 mg/dL (60-99); HDL Cholesterol 28 mg/dL; LDL Cholesterol Calculated 60 mg/dl; Potassium 4.5 mmol/L (3.3-5.1); Sodium 143 mmol/L (135-145); Total Protein 6.2 g/dL (6.5-8.0); Triglycerides 47 mg/dL
[2021-05-01 10:29] LABS: Creatinine Urine 51.61 mg/dL; Microalbum/Creatinine Ratio Ur 52.3 ug/mg cr
[2021-05-07 14:51] LABS: Vitamin D 25-OH, D2 <4 ng/mL; Vitamin D 25-OH, D3 32 ng/mL; Vitamin D 25-OH, Total 32 ng/mL (30-100)
== END 2021-05-01 07:20 | disposition home or self-care (01) ==
LOC: HO.LAB 07:19
PROVIDERS: PCP Internal Medicine; Visit Provider Internal Medicine Cardiovascular Disease
DX: E11.42 Type 2 diabetes mellitus with diabetic polyneuropathy (principal); I50.22 Chronic systolic (congestive) heart failure; E55.9 Vitamin D deficiency, unspecified; D64.9 Anemia, unspecified; E78.5 Hyperlipidemia, unspecified
CPT/HCPCS: 36415; 80053; 80061; 82043; 82306; 83880; 85025

== ENCOUNTER → 2021-05-04 13:22 | Outpatient (BNVA) | payer MEDICARE, SELFPAY | PROVIDERS: PCP Internal Medicine; Referring Provider Internal Medicine; Visit Provider Internal Medicine Cardiovascular Disease | DX: Z45.018 Encounter for adjustment and management of other part of cardiac pacemaker (principal); I50.22 Chronic systolic (congestive) heart failure; I48.0 Paroxysmal atrial fibrillation | CPT/HCPCS: 99212 ==

== ENCOUNTER → 2021-05-12 13:36 | Outpatient (BNVA) | payer MEDICARE, SELFPAY | PROVIDERS: PCP Internal Medicine; Visit Provider Nurse Practitioner Gerontology | DX: E11.42 Type 2 diabetes mellitus with diabetic polyneuropathy (principal); E78.5 Hyperlipidemia, unspecified; E66.09 Other obesity due to excess calories; I10 Essential (primary) hypertension; Z68.33 Body mass index [BMI] 33.0-33.9, adult | CPT/HCPCS: 82947; 99212 ==

== ENCOUNTER → 2021-05-18 10:47 | Outpatient (REF) | payer MEDICARE, SELFPAY ==
--- NOTE | ~2021-05-18 | NM_ITS ---
[facility] CARDIAC STUDY Indication: Evaluation of cardiac amyloidosis CLINICAL HISTORY: 76-year-old male with the history of heart failure as well as atrial fibrillation with persistent, to evaluate for cardiac amyloidosis COMPARISON: None TECHNIQUE: Patient is injected with 25 mCi 99m technetium pyrophosphate intravenously. Planar images of the chest were obtained in anterior and left subcutaneous at 3 hours. SPECT-CT images of the chest were also obtained. FINDINGS: 1. Image quality is adequate 2. Semiquantitative reduced scarring of the cardiac uptake is 0 consistent with no myocardial uptake 3. H-CL ratio is not applicable 4. No clear ancillary findings noted NM/NM [facility] cardiac amyloidosis IMPRESSION: 1. No evidence of cardiac amyloidosis all ATTR wild type 2. Please note that is best is more sensitive in detecting transthyretin related cardiac amyloidosis and if light-chain cardiac amyloidosis is suspected then alternative tests should be performed
== END ==
LOC: HO.NUCMED 10:47
PROVIDERS: Visit Provider Internal Medicine Cardiovascular Disease
DX: I50.40 Unspecified combined systolic (congestive) and diastolic (congestive) heart failure (principal)
CPT/HCPCS: 78803; A9538

== ENCOUNTER → 2021-08-04 12:19 | Outpatient (BNVA) | payer MEDICARE, SELFPAY | PROVIDERS: PCP Internal Medicine; Referring Provider Internal Medicine; Visit Provider Nurse Practitioner | DX: Z01.818 Encounter for other preprocedural examination (principal); I48.0 Paroxysmal atrial fibrillation; I50.22 Chronic systolic (congestive) heart failure; Z79.01 Long term (current) use of anticoagulants; Z79.899 Other long term (current) drug therapy; Z45.018 Encounter for adjustment and management of other part of cardiac pacemaker | CPT/HCPCS: 93005; 99212 ==

== ENCOUNTER → 2021-08-17 09:04 | Outpatient (BNVA) | payer MEDICARE, SELFPAY | PROVIDERS: PCP Internal Medicine; Visit Provider Internal Medicine | DX: G47.33 Obstructive sleep apnea (adult) (pediatric) (principal); J44.9 Chronic obstructive pulmonary disease, unspecified; E66.09 Other obesity due to excess calories; Z68.33 Body mass index [BMI] 33.0-33.9, adult; Z79.899 Other long term (current) drug therapy; Z99.89 Dependence on other enabling machines and devices | CPT/HCPCS: 99212 ==